=== PATIENT | female | born 1940 | race Caucasian/White ===

== ENCOUNTER 2022-01-03 13:17 | Emergency (ER) | payer MEDICARE, OTHER | END 2022-01-03 15:58 | disposition home or self-care (01) | LOC: JD.ED 13:17 | DX: I48.0 Paroxysmal atrial fibrillation (principal); Z79.899 Other long term (current) drug therapy | CPT/HCPCS: 36415; 83735; 84439; 84443; 84484; 85379; 93005; 93010; 99284; 99285-25 ==